=== PATIENT | female | born 1935 | race Caucasian/White ===

== ENCOUNTER 2017-10-21 05:17 | Inpatient (IN) | payer OTHER ==
[2017-10-21] MEDS ORDERED: ceFAZolin 2 GM/SWFI 2 GM/20 ML SYR IVP ONE (05:41)
[2017-10-21] MEDS ORDERED: LR 1,000 ML IV ONE (05:42)
[2017-10-21] MEDS ORDERED: LIDOCAINE 1% 2 ML INJ ID PRN (05:42)
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
--- NOTE | 2017-10-21 07:10 | PDHPUP ---
History & Physical Update H&P update statement: This history and physical update is based on an assessment of the patient which was completed after admission or registration (within 24 hours), but prior to the surgery/procedure. H&P update: H&P reviewed & patient examined, no change in patient's condition since H&P completed
[2017-10-21 07:14] LABS: PLATELET COUNT 325 10^3/uL (150-400)
[2017-10-21] MEDS ORDERED: BUPIVACAINE 0.5% 30 ML SDV ONE (07:41)
[2017-10-21] MEDS ORDERED: THROMBIN (BOVINE) 20,000 UNIT SPRAY TP ONE (07:49)
[2017-10-21] MEDS ORDERED: traMADol 50 MG TAB PO PRN (08:11)
[2017-10-21] MEDS ORDERED: ONDANSETRON 4 MG/2 ML VIAL IVP PRN ×2 (08:12→08:22)
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
[2017-10-21] MEDS ORDERED: fentaNYL 100 MCG/2 ML INJ IVP PRN (08:22)
[2017-10-21] MEDS ORDERED: NALOXONE HCL 0.4 MG/ML INJ IVP PRN (08:22)
[2017-10-21] MEDS ORDERED: ACETAMINOPHEN 500 MG TAB PO PRN (08:22)
[2017-10-21] MEDS ORDERED: HYDROCODONE/APAP 5/325 TAB PO PRN (08:22)
[2017-10-21] MEDS ORDERED: epHEDrine SULFATE 10 MG/ML SYR IVP PRN (08:22)
--- NOTE | 2017-10-21 08:24 | POSTANESTH ---
Post Anesthetic Evaluation Cardiovascular Status: Normal, Stable, Similar to Pre-Op Cond Respiratory Status: Normal, Stable, Similar to Pre-op Cond. Level of Consciousness/Mental Status: Can Participate in Eval, Mildly Sleepy, Arousable Pain Control: Adequate, Prn Tx Ordered Nausea/Vomiting Control: Adequate, Prn Tx Ordered Complications Possibly Related to Anesthesia: None Noted
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
[2017-10-21] MEDS ORDERED: ALBUTEROL 60 PUFFS/8 GM MDI IH PRN (11:46)
[2017-10-21] MEDS ORDERED: CYCLOBENZAPRINE 10 MG TAB PO PRN (11:46)
[2017-10-21] MEDS ORDERED: DICLOFENAC SODIUM 1% 100 GM GEL TP PRN ×2 (11:46→11:58)
[2017-10-21] MEDS: ACETAMINOPHEN 325 MG TAB PO PRN (13:04)
[2017-10-21] MEDS ORDERED: ceFAZolin 1 GM in NS 100 ML IV SCH (14:00)
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
[2017-10-21] MEDS: CARVEDILOL 6.25 MG TAB PO SCH (17:39)
[2017-10-21] MEDS: traMADol 50 MG TAB PO PRN (17:45)
[2017-10-21] MEDS ORDERED: CARVEDILOL 6.25 MG TAB PO SCH (18:00)
[2017-10-21] MEDS: ATORVASTATIN CALCIUM 40 MG TAB PO SCH (20:46)
[2017-10-21] MEDS: MEMANTINE HCL 5 MG TAB PO SCH (20:47)
[2017-10-21] MEDS: CLOPIDOGREL BISULFATE 75 MG TAB PO SCH (20:47)
[2017-10-21] MEDS: AMITRIPTYLINE HCL 10 MG TAB PO SCH (20:47)
[2017-10-21] MEDS: ASPIRIN 81 MG CHEWABLE TAB PO SCH (20:47)
[2017-10-21] MEDS: PANTOPRAZOLE SODIUM 40 MG TAB PO SCH (20:47)
[2017-10-21] MEDS ORDERED: NON-FORMULARY NEW DRUG (Atorvastatin Calcium [Atorvastatin Calcium] 80 MG) PO SCH (21:00)
[2017-10-22 05:07] LABS: PLATELET COUNT 290 10^3/uL (150-400)
[2017-10-22] MEDS: LEVOTHYROXINE 75 MCG TAB PO SCH (05:40)
[2017-10-22] MEDS: FUROSEMIDE 20 MG TAB PO SCH (08:25)
[2017-10-22] MEDS: CARVEDILOL 6.25 MG TAB PO SCH ×2 (08:25→17:44)
[2017-10-22] MEDS: FLUoxetine 20 MG CAP PO SCH (08:25)
[2017-10-22] MEDS: PANTOPRAZOLE SODIUM 40 MG TAB PO SCH ×2 (08:26→20:57)
[2017-10-22] MEDS: MEMANTINE HCL 5 MG TAB PO SCH ×2 (08:26→20:57)
[2017-10-22] MEDS: SPIRONOLACTONE 25 MG TAB PO SCH (08:26)
[2017-10-22] MEDS: traMADol 50 MG TAB PO PRN ×2 (08:30→15:41)
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
[2017-10-22] MEDS: ACETAMINOPHEN 325 MG TAB PO PRN ×2 (13:21→20:56)
--- NOTE | 2017-10-22 15:00 | HOSPPROG ---
Hospitalist Progress Note Assessment/Plan: # left lower extremity wound- status post surgical debridement and wound VAC overnight Dr. Nix removed wound VAC this am - lower extremity currently dressed - continue antibiotics - surgical re-assessment tomorrow # acute hypoxic respiratory failure- suspect postoperative is the patient has been effectively weaned off oxygen overnight Oxygen saturations 92% on room air -continue to monitor # CAD - no CP complaints - continue med management -cont aspirin, statin, Coreg, Plavix # hypertension - currently controlled SBP 110-130 - continue Coreg, Lasix, spironolactone # prophylaxis Lovenox # diet regular # disposition-greater than 2 midnights as the patient requires ongoing surgical evaluation and care for left lower extremity wound I have discussed case with the RN patient is taking adequate p.o. Will monitor pain control today Subjective: denies SOB Objective: Vital Signs Temp Pulse Resp BP Pulse Ox 36.7 C 84 14 114/61 92 10/22/17 11:04 10/22/17 08:25 10/22/17 11:04 10/22/17 11:04 10/22/17 11:04 Laboratory Results 10/22/17 04:37 10/22/17 04:37 10/21/17 10/22/17 10/23/17 05:59 05:59 05:59 Intake Total 1000 Output Total 100 1600 Balance 900 -1600 - Physical Exam Constitutional: chronically ill appearing Eyes: anicteric sclera Ears, Nose, Mouth, Throat: moist mucous membranes Cardiovascular: regular rate and rhythym Respiratory: no respiratory distress Gastrointestinal: normoactive bowel sounds Genitourinary: no bladder fullness Skin: warm Musculoskeletal: No asymmetric calves Neurologic: AAOx3 Psychiatric: interacting appropriately Lymph, Heme, Immunologic: no cervical LAD ICD10 Worksheet Patient Problems: Problems Problem Status Onset Nonhealing nonsurgical wound Acute
--- NOTE | 2017-10-22 17:03 | PDMN ---
Medical Necessity Medical necessity: C/M review: est. > 2 MN LOS for eval and TX of left lower extremity wound S/P 10/21/2017 surgery - debridement of wound and wound VAC overnight, wound VAC removed 10/22/[address] Willis, acute hypoxic respiratory failure - suspect postoperative - patient has been effectively weaned off O2 overnight requiring ongoing surgical evaluation and care for left lower extremity woubnd, IV antibiotics, pulse oximetry, pain management per 10/22/2017 Hospitalist progress note.
[2017-10-22] MEDS: ATORVASTATIN CALCIUM 40 MG TAB PO SCH (20:56)
[2017-10-22] MEDS: AMITRIPTYLINE HCL 10 MG TAB PO SCH (20:56)
[2017-10-22] MEDS: CLOPIDOGREL BISULFATE 75 MG TAB PO SCH (20:56)
[2017-10-22] MEDS: ASPIRIN 81 MG CHEWABLE TAB PO SCH (20:57)
[2017-10-23] MEDS: LEVOTHYROXINE 75 MCG TAB PO SCH (05:11)
[2017-10-23] MEDS: PANTOPRAZOLE SODIUM 40 MG TAB PO SCH ×2 (08:39→20:58)
[2017-10-23] MEDS: FLUoxetine 20 MG CAP PO SCH (08:39)
[2017-10-23] MEDS: MEMANTINE HCL 5 MG TAB PO SCH ×2 (08:39→20:58)
[2017-10-23] MEDS: CARVEDILOL 6.25 MG TAB PO SCH ×2 (08:39→17:35)
[2017-10-23] MEDS: SPIRONOLACTONE 25 MG TAB PO SCH (08:40)
[2017-10-23] MEDS: FUROSEMIDE 20 MG TAB PO SCH (08:40)
[2017-10-23] MEDS: ACETAMINOPHEN 325 MG TAB PO PRN ×3 (08:48→20:57)
--- NOTE | 2017-10-23 12:36 | HOSPPROG ---
Hospitalist Progress Note Assessment/Plan: 82-year-old female presents to the hospital for elective wound debridement. Following for medical management. 1st encounter, chart reviewed. # history of coronary artery disease Continue home med Stable with no chest pain # hypertension Treated with antihypertensives Stable and follow # diabetes type 2 Good control Follow in the hospital # history of atrial fibrillation Rate controlled Home meds continued # left lower extremity wound Per surgery Post debridement # disposition Patient will remain in the hospital for further wound care Continue supportive measures Subjective: Up in the chair. Eating breakfast. No pain currently. Objective: Vital Signs Temp Pulse Resp BP Pulse Ox 36.7 C 91 16 130/80 H 96 10/23/17 07:33 10/23/17 07:33 10/23/17 07:33 10/23/17 07:33 10/23/17 07:33 Laboratory Results 10/22/17 04:37 10/22/17 04:37 10/22/17 10/23/17 10/24/17 05:59 05:59 05:59 Intake Total 1000 200 Output Total 100 1950 950 Balance 105 -5212 -677 - Physical Exam Constitutional: no apparent distress, appears nourished, not in pain Eyes: PERRL, anicteric sclera, EOMI Ears, Nose, Mouth, Throat: moist mucous membranes, hearing normal, ears appear normal Cardiovascular: No JVD, No tachycardia, No edema Respiratory: no respiratory distress, no rales or rhonchi, clear to auscultation Gastrointestinal: normoactive bowel sounds, No tenderness, No ascites Skin: warm, normal color, erythema Musculoskeletal: normal joint ROM, no joint effusions, generalized weakness Neurologic: AAOx3 Psychiatric: interacting appropriately, not anxious, not encephalopathic, thought process linear ICD10 Worksheet Patient Problems: Problems Problem Status Onset Nonhealing nonsurgical wound Acute
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
[2017-10-23] MEDS: traMADol 50 MG TAB PO PRN (17:39)
[2017-10-23] MEDS: AMITRIPTYLINE HCL 10 MG TAB PO SCH (20:58)
[2017-10-23] MEDS: CLOPIDOGREL BISULFATE 75 MG TAB PO SCH (20:58)
[2017-10-23] MEDS: ASPIRIN 81 MG CHEWABLE TAB PO SCH (20:58)
[2017-10-23] MEDS: ATORVASTATIN CALCIUM 40 MG TAB PO SCH (21:02)
[2017-10-24] MEDS: LEVOTHYROXINE 75 MCG TAB PO SCH (05:28)
[2017-10-24 08:18] VITALS: BP 120/92
[2017-10-24] MEDS: MEMANTINE HCL 5 MG TAB PO SCH (09:08)
[2017-10-24] MEDS: CARVEDILOL 6.25 MG TAB PO SCH (09:09)
[2017-10-24] MEDS: SPIRONOLACTONE 25 MG TAB PO SCH (09:09)
[2017-10-24] MEDS: PANTOPRAZOLE SODIUM 40 MG TAB PO SCH (09:09)
[2017-10-24] MEDS: FUROSEMIDE 20 MG TAB PO SCH (09:09)
[2017-10-24] MEDS: FLUoxetine 20 MG CAP PO SCH (09:09)
--- NOTE | 2017-10-24 09:35 | PDIAF ---
- Diagnosis Diagnosis: LLE wound Code Status: Do Not Resuscitate - Medication Management Discharge Medications: Medications to Continue on Transfer Amitriptyline HCl [Elavil 10 mg (*)] 30 mg PO HS 10/20/17 [Last Taken 10/20/17 20:30 80 mg] Aspirin [Aspirin 81mg (*)] 81 mg PO HS 10/20/17 [Last Taken 10/20/17 08:30] Atorvastatin Calcium 80 mg PO HS 10/20/17 [Last Taken 10/20/17 20:30 80 mg] Clopidogrel Bisulfate [Plavix (*)] 75 mg PO HS 10/20/17 [Last Taken 10/20/17 20: 30] Cyclobenzaprine [Flexeril 10 MG (*)] 10 mg PO BID PRN 10/20/17 [Last Taken 10/14] Diclofenac Sodium 1% [Voltaren Gel (*)] 1 chago TP BID PRN 10/20/17 [Last Taken ] FLUoxetine [Prozac 20 MG (*)] 40 mg PO DAILY 10/20/17 [Last Taken 10/20/17 08: 30 40 mg] Furosemide [Lasix 20 MG (*)] 40 mg PO DAILY 10/20/17 [Last Taken 10/20/17 10:30 40 mg] Levothyroxine [Synthroid 75 mcg (*)] 75 mcg PO DAILY06 10/20/17 [Last Taken 08/08 06:30 75mcg] Memantine HCl [Namenda 5 mg (*)] 5 mg PO BID 10/20/17 [Last Taken 10/20/17 20: 30 5mg] Pantoprazole Sodium [Protonix 40mg (*)] 40 mg PO BID 10/20/17 [Last Taken 20:30 40mg] Spironolactone [Aldactone 25 MG (*)] 12.5 mg PO DAILY 10/20/17 [Last Taken 10/20 10:30 12.5 mg] Albuterol [Proventil Inhaler HFA (*)] 1 - 2 puffs IH Q4H PRN 10/21/17 [Last Taken Unknown] Carvedilol [Coreg (*)] 6.25 mg PO BIDMEAL 10/21/17 [Last Taken 10/21/17 04:00] traMADol [Ultram 50 mg (*)] 50 - 100 mg PO Q6H PRN #30 tab 10/24/17 [Last Taken Unknown] Discharge Medications: Refer to the Discharge Home Medication list for PRN reason. - Orders Services needed: Home Care, Registered Nurse, Physical Therapy, Occupational Therapy Home Care Face to Face: I certify that this patient was under my care and that I had the required [id number] encounter meeting the encounter requirements on the discharge day. My findings support the fact that the patient is homebound as defined in Home Care Face to Face Continued: CMS Chapter 7 Medicare Benefits Manual 30.1.1 , The condition of the patient is such that there exists a normal inability to leave home and consequently, leaving home would require a considerable and taxing effort. Diet Recommendation: no restrictions on diet Diet Texture: Regular Texture Diet Wound Care Instructions: Only change overlyig dressing. Absorbant pad covered with Kerlix. DO NOT CHANGE UNDERLYING BLUE DRESSING WHICH IS MARKED Additional Instructions: no strenuous activity or heavy lifting No tub bathing, showering or soaking. Sponge bathe only Tramadol and Tylenol as needed for pain - Follow Up Care Current Providers and Referrals: CHRIS HANKINS [Other] Rossana Willis MD [Medical Doctor] - (you need to follow up with her this week to have the dressing removed and the wound assessed )
[2017-10-24] MEDS: ACETAMINOPHEN 325 MG TAB PO PRN (11:53)
--- NOTE | 2017-10-24 13:58 | ASMTCMCOM ---
CM Note CM Note Notes: CM spoke with provider, patient is to discharge today. CM call to [facility] [phone] and spoke with Abelino, will send orders for discharge. CM met with patient, her daughter will pick her up when discharged. IM given to patient and signed copy placed in chart. CM available to follow with any additional d/c needs. D/C Plan: Patient to D/C today to home, continue with [facility] . Date Signed: 10/24/2017 01:57 PM Electronically Signed By:Terra Simmons
--- NOTE | 2017-10-24 14:38 | HOSPPROG ---
Hospitalist Progress Note Assessment/Plan: 82-year-old female presents to the hospital for elective wound debridement. Following for medical management. D/W Dr Humphrey # history of coronary artery disease Continue home med Stable with no chest pain # hypertension Treated with antihypertensives Stable and follow # diabetes type 2 Good control Follow in the hospital # history of atrial fibrillation Rate controlled Home meds continued # left lower extremity wound Per surgery Post debridement # disposition DC home per surgery Subjective: Up in chair. Feels well. Objective: Vital Signs Temp Pulse Resp BP Pulse Ox 36.8 C 90 18 120/92 H 96 10/24/17 08:00 10/24/17 08:00 10/24/17 08:00 10/24/17 08:00 10/24/17 08:00 Laboratory Results 10/22/17 04:37 10/22/17 04:37 10/23/17 10/24/17 10/25/17 05:59 05:59 05:59 Intake Total 1120 Output Total 1949 1999 Balance -1312 -130 - Physical Exam Constitutional: appears nourished, not in pain, chronically ill appearing Eyes: PERRL, anicteric sclera, EOMI Ears, Nose, Mouth, Throat: moist mucous membranes, hearing normal, ears appear normal Cardiovascular: No JVD, No tachycardia, No edema Respiratory: no respiratory distress, no rales or rhonchi, clear to auscultation Gastrointestinal: normoactive bowel sounds, No tenderness, No ascites Skin: warm, erythema, induration Musculoskeletal: normal joint ROM, no joint effusions, generalized weakness Neurologic: AAOx3 Psychiatric: interacting appropriately, not anxious, not encephalopathic, thought process linear ICD10 Worksheet Patient Problems: Problems Problem Status Onset Nonhealing nonsurgical wound Acute
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
== END 2017-10-24 15:00 | disposition home health service (06) | DRG 935 ==
LOC: FSGY 05:17 → OBSVTOIN 08:09 → F3E 08:09
PROVIDERS: ADMIT Surgery; ATTEND Surgery
PROC: 0JDP3ZZ Extraction of Left Lower Leg Subcutaneous Tissue and Fascia, Percutaneous Approach (ICD-10-PCS; principal; 2017-10-21 07:15)
DX: T24.032A Burn of unspecified degree of left lower leg, initial encounter (principal); T31.10 Burns involving 10-19% of body surface with 0% to 9% third degree burns; X16.XXXA Contact with hot heating appliances, radiators and pipes, initial encounter; J96.01 Acute respiratory failure with hypoxia; I48.91 Unspecified atrial fibrillation; I11.0 Hypertensive heart disease with heart failure; I50.42 Chronic combined systolic (congestive) and diastolic (congestive) heart failure; I25.10 Atherosclerotic heart disease of native coronary artery without angina pectoris; E11.51 Type 2 diabetes mellitus with diabetic peripheral angiopathy without gangrene; K21.9 Gastro-esophageal reflux disease without esophagitis; F03.90 Unspecified dementia, unspecified severity, without behavioral disturbance, psychotic disturbance, mood disturbance, and anxiety; Z95.0 Presence of cardiac pacemaker
CPT/HCPCS: 97116-GP; 97161-GP; 97165-GO; 97530-GP; 97535-GO; G8978-GP-CI; G8978-GP-CJ; G8979-GP-CI; G8980-GP-CI; G8987-GO-CK; G8988-GO-CJ; J0690